=== PATIENT | female | born 1975 | race Caucasian/White ===

== ENCOUNTER → 2016-08-26 | Outpatient (CLI) | payer BC ==
[~2016-08-26] MED LIST: METF750T PO; MISC1TAB; PRENTAB26 PO; WLLXL300 PO
== END | disposition home or self-care (01) ==
LOC: C.PAPS 13:38
PROVIDERS: ATTEND Obstetrics & Gynecology
DX: Z01.419 Encounter for gynecological examination (general) (routine) without abnormal findings (principal)

== ENCOUNTER 2017-01-22 15:26 | Emergency (ER) | payer BC ==
[~2017-01-22] VITALS: Ht 170.2 cm; Wt 73.2 kg
[~2017-01-22 15:26] MED LIST changes: -METF750T PO; -WLLXL300 PO
[2017-01-22 15:45] VITALS: Ht 170.2 cm; Wt 73.2 kg
[2017-01-22] MEDS ORDERED: WLLXL300 PO (16:02)
[2017-01-22] MEDS ORDERED: METF750T PO (16:02)
--- NOTE | 2017-01-22 16:29 | EMERGENCY ROOM VISIT NOTE ---
History First contact with patient: 16:09 Chief Complaint: CARDIAC ASSESSMENT Stated Complaint: CHEST PAINS, PAIN IN SHOULDER, FULLNESS IN THROAT Nursing Triage Summary: triage note pt states sharp pain on the left side of chest and into left shoulder starting this am at 0900 pt states sharp pain is only when she deep breaths, at rest chest feels "dense and heavy" pt reports sob upon excertion denies recent travel admits to un dx anxiety History of Present Illness The patient is a 41 year old female who presents to the Emergency Room with complaints of chest pain. The patient states that around 9 AM she was driving her daughter to school and noticed a pain in the left side of her chest. She states it radiated into the left shoulder blade. She states the pain was worse with exertion and deep inspiration. She states that at rest she feels a heaviness in her chest. The patient rates her discomfort a 3/10. She states that overall throughout the day it has improved slightly. The patient states she has occasionally felt her heart pounding and palpitations. She denies any earache, sore throat, cough or fever. She denies any abdominal pain, nausea or vomiting. She denies any personal or family history of DVT or PE. She states that her mother has had CVA in her father has had angioplasty. She states that her sister from cardiac arrest but there is question that it was related to anorexia. The patient has a history of PCOS and takes Glucophage for that. She denies any recent travel or recent surgery. Review of Systems A 10 system review of systems was completed with positives and pertinent negatives listed in the HPI. Past Medical/Surgical History Medical Problems: (1) PCOS (polycystic ovarian syndrome) Social History Smoking Status: Never Smoker Housing Status: lives with family Current/Historical Medications Scheduled Bupropion HCl (Bupropion HCl Xl), 300 MG PO DAILY Metformin Hcl (Glucophage Er), 750 MG PO BID Allergies Coded Allergies: No Known Allergies (Unverified , 10/27/14) Physical Exam Vital Signs Date Time Temp Pulse Resp B/P (MAP) Pulse Ox O2 Delivery O2 Flow Rate FiO2 01/22/17 18:56 36.6 74 14 112/77 98 01/22/17 18:27 74 14 112/77 98 Room Air 01/22/17 17:53 70 14 110/76 98 Room Air 01/22/17 17:26 70 17 98 01/22/17 16:56 70 14 98 01/22/17 16:26 77 24 98 01/22/17 16:16 80 01/22/17 15:49 96 Room Air 01/22/17 15:45 36.6 106 18 115/68 96 Room Air Physical Exam VITALS: Vitals are noted on the nurse's note and reviewed by myself. Vital signs stable. The patient is afebrile. She is slightly tachycardic with heart rate 106 bpm. She is not hypoxic. GENERAL: This is a 41-year-old female, in no acute distress, nondiaphoretic, well-developed well-nourished. SKIN: The skin was without rashes, erythema, edema, or bruising. There is no tenting of the skin. Capillary reflex less than 2 seconds. HEAD: Normocephalic atraumatic. EARS: External ears normal in appearance. EYES: Pupils equal round and reactive to light and accommodation. Conjunctivae without injection, sclerae without icterus. Extraocular movements intact. NOSE: Patent, turbinates without inflammation or discharge. MOUTH: Mucous membranes moist. Tonsils are not enlarged. Pharynx without erythema or exudate. Uvula midline. Airway patent. Tongue does not deviate. NECK: Supple without nuchal rigidity. No lymphadenopathy. No thyromegaly. Cervical spine is nontender. No JVD. HEART: Regular rate and rhythm without murmurs gallops or rubs. LUNGS: Clear to auscultation bilaterally without wheezes, rales or rhonchi. No retractions or accessory muscle use. ABDOMEN: Positive bowel sounds x 4. Soft, nontender, without masses or organomegaly. Shah sign negative. MUSCULOSKELETAL: No muscle atrophy, erythema, or edema noted. Full range of motion in all extremities. Strength 5/5 throughout. NEURO: Patient was alert and oriented to person place and time. No focal neurological deficits. Medical Decision & Procedures Laboratory Results 01/22/17 16:45 Red Blood Count 4.67, Mean Corpuscular Volume 86.5, Mean Corpuscular Hemoglobin 30.0, Mean Corpuscular Hemoglobin Concent 34.7, Mean Platelet Volume 10.6, Neutrophils (%) (Auto) 73.2, Lymphocytes (%) (Auto) 18.4, Monocytes (%) (Auto) 5.9, Eosinophils (%) (Auto) 2.0, Basophils (%) (Auto) 0.5, Neutrophils # (Auto) 6.98, Lymphocytes # (Auto) 1.75, Monocytes # (Auto) 0.56, Eosinophils # (Auto) 0.19, Basophils # (Auto) 0.05 01/22/17 16:45 Test 01/22/17 16:45 White Blood Count 9.53 K/uL (4.8-10.8) Red Blood Count 4.67 M/uL (4.2-5.4) Hemoglobin 14.0 g/dL (12.0-16.0) Hematocrit 40.4 % (37-47) Mean Corpuscular Volume 86.5 fL (80-100) Mean Corpuscular Hemoglobin 30.0 pg (25-34) Mean Corpuscular Hemoglobin Concent 34.7 g/dl (32-36) Platelet Count 286 K/uL (130-400) Mean Platelet Volume 10.6 fL (7.4-10.4) Neutrophils (%) (Auto) 73.2 % Lymphocytes (%) (Auto) 18.4 % Monocytes (%) (Auto) 5.9 % Eosinophils (%) (Auto) 2.0 % Basophils (%) (Auto) 0.5 % Neutrophils # (Auto) 6.98 K/uL (1.4-6.5) Lymphocytes # (Auto) 1.75 K/uL (1.2-3.4) Monocytes # (Auto) 0.56 K/uL (0.11-0.59) Eosinophils # (Auto) 0.19 K/uL (0-0.5) Basophils # (Auto) 0.05 K/uL (0-0.2) RDW Standard Deviation 41.0 fL (36.4-46.3) RDW Coefficient of Variation 12.9 % (11.5-14.5) Immature Granulocyte % (Auto) 0.0 % Immature Granulocyte # (Auto) 0.00 K/uL (0.00-0.02) Prothrombin Time 11.1 SECONDS (9.0-12.0) Prothromb Time International Ratio 1.0 (0.9-1.1) Activated Partial Thromboplast Time 26.6 SECONDS (21.0-31.0) Partial Thromboplastin Ratio 1.0 D-Dimer < 190 ug/L FEU (0-500) Anion Gap 6.0 mmol/L (3-11) Est Creatinine Clear Calc Drug Dose 75.1 ml/min Estimated GFR () 86.1 Estimated GFR (Non- 74.3 BUN/Creatinine Ratio 10.5 (10-20) Calcium Level 8.6 mg/dl (8.5-10.1) Magnesium Level 2.2 mg/dl (1.8-2.4) Total Bilirubin 0.5 mg/dl (0.2-1) Aspartate Amino Transf (AST/SGOT) 11 U/L (15-37) Alanine Aminotransferase (ALT/SGPT) 15 U/L (12-78) Alkaline Phosphatase 56 U/L (45-117) Troponin I < 0.015 ng/ml (0-0.045) Total Protein 7.5 gm/dl (6.4-8.2) Albumin 4.0 gm/dl (3.4-5.0) Globulin 3.5 gm/dl (2.5-4.0) Albumin/Globulin Ratio 1.1 (0.9-2) Lipase 200 U/L (73-393) Thyroid Stimulating Hormone (TSH) 1.650 uIu/ml (0.300-4.500) Procedure The patient was monitored on a crossbow maker. They maintained a normal sinus rhythm without ectopy. ECG Indication: chest pain Rate (beats per minute): 70 Rhythm: normal sinus Findings: no acute ischemic change Comparison ECG Date: no prior available ED Course The patient was seen and examined. Previous visits were reviewed. The patient does not have a fever or leukocytosis. She does not have any significant electrolyte abnormalities. Troponin is not elevated. TSH is within normal limits. Lipase is not elevated. INR is 1.0. D-dimer is not elevated. Chest x-ray does not reveal any acute abnormality EKG does not reveal any arrhythmia or ischemia The patient presents to the emergency department with left-sided chest pain that is primarily pleuritic in nature. The patient's symptoms have nearly resolved at the time of discharge. The patient is encouraged to contact her family doctor to schedule a follow-up appointment for further evaluation and management, possible outpatient Holter monitor or stress test. She should return with any worsening symptoms. The case was discussed with Dr. Venegas who agrees with the assessment and treatment plan. Medication Reconciliation: I attest that I have personally reviewed the patient' s current medication list. Blood pressure screening: The patient was found to have normal blood pressure on screening and does not require follow-up Medical Decision DIFFERENTIAL DIAGNOSIS: Aortic dissection, myocarditis, pericarditis, cervical disc disease, costochondritis, herpes zoster, rib fracture, pleuritis, pneumonia , pulmonary embolus, tension pneumothorax, anxiety disorder, somatoform disorder , choledocholithiasis, status, esophagitis, esophageal spasm, esophageal reflux , esophageal rupture, pancreatitis, peptic ulcer disease, cardiac ischemia, ST elevation [place], acute coronary syndrome, arrhythmia, coronary artery vasospasm. vavular heart disease, coronary artery disease, among others. Impression Primary Impression: Substernal precordial chest pain Additional Impression: Pleuritic chest pain Departure Information Dispostion Home / Self-Care Condition GOOD Referrals RV. Garcia MD (PCP) Patient Instructions Chest Pain - [facility], [facility] Additional Instructions Contact your family doctor on Wednesday to schedule a follow up appointment for further evaluation and management and possible outpatient workup including possible stress test and holter monitor Return with any worsening symptoms Problem Qualifiers
--- NOTE | 2017-01-22 16:32 | DIAGNOSTIC IMAGING REPORT ---
SINGLE VIEW CHEST CLINICAL HISTORY: Atypical chest pain. FINDINGS: An AP, portable, upright chest radiograph is obtained. No prior studies are available for comparison at the time of dictation. The examination is degraded by portable technique and patient rotation. The cardiomediastinal silhouette is unremarkable. The lungs and pleural spaces are clear. No pneumothorax is seen. The bony thorax is grossly intact. IMPRESSION: No active disease in the chest. Electronically signed by: Chau Campuzano M.D. 01/22/2017 4:31 PM Dictated Date/Time: 01/22/2017 4:30 PM
[2017-01-22 16:58] LABS: BASO % 0.5 %; BASO ABS # 0.05 K/uL (0-0.2); COMPLETE YES; HEMATOCRIT 40.4 % (37-47); LYMPH % 18.4 %; LYMPH ABS # 1.75 K/uL (1.2-3.4); MEAN CELL VOLUME 86.5 fL (80-100); MEAN CORPUSCULAR HGB CONC 34.7 g/dl (32-36); MEAN PLATELET VOLUME 10.6 fL (7.4-10.4); MONO % 5.9 %; NEUT % 73.2 %; PLATELET COUNT 286 K/uL (130-400); RED BLOOD COUNT 4.67 M/uL (4.2-5.4); WHITE BLOOD COUNT 9.53 K/uL (4.8-10.8)
[2017-01-22 17:19] LABS: PROTHROMBIN TIME (PATIENT) 11.1 SECONDS (9.0-12.0)
[2017-01-22 17:26] LABS: ALT/SGPT 15 U/L (12-78); AST/SGOT 11 U/L (15-37); BLOOD UREA NITROGEN 10 mg/dl (7-18); BUN/CREATININE RATIO 10.5 (10-20); CALCIUM 8.6 mg/dl (8.5-10.1); CARBON DIOXIDE 30 mmol/L (21-32); CHLORIDE 106 mmol/L (98-107); CREATININE 0.94 mg/dl (0.60-1.20); GLUCOSE 82 mg/dl (70-99); MAGNESIUM 2.2 mg/dl (1.8-2.4); SODIUM 142 mmol/L (136-145)
[2017-01-22 17:37] LABS: ALB/GLOB RATIO 1.1 (0.9-2); ALKALINE PHOSPHATASE 56 U/L (45-117)
[2017-01-22 18:56] VITALS: BP 112/77; PULSE 74; TEMP 36.6; O2SAT 98
== END 2017-01-22 18:56 | disposition home or self-care (01) ==
LOC: C.EDB 15:28 → C.EDC 18:56
DX: R07.2 Precordial pain (principal); R07.1 Chest pain on breathing; R00.2 Palpitations; E28.2 Polycystic ovarian syndrome; Z82.3 Family history of stroke; Z79.84 Long term (current) use of oral hypoglycemic drugs

== ENCOUNTER → 2017-02-17 | Outpatient (CLI) | payer BC ==
[~2017-02-17] MED LIST changes: +METF750T PO; -MISC1TAB; -PRENTAB26 PO; +WLLXL300 PO
--- NOTE | 2017-02-17 16:08 | MAMMOGRAPHY REPORT ---
BILATERAL DIGITAL SCREENING MAMMOGRAM TOMOSYNTHESIS WITH CAD: 02/17/2017 CLINICAL HISTORY: Routine screening. Patient has no complaints. TECHNIQUE: Breast tomosynthesis in addition to standard 2D mammography was performed. Current study was also evaluated with a Computer Aided Detection (CAD) system. COMPARISON: No prior exams were available for comparison. BREAST COMPOSITION: There are scattered areas of fibroglandular density in both breasts. FINDINGS: There are punctate benign-appearing microcalcifications scattered in the breasts. No suspi cious mass, architectural distortion or cluster of microcalcifications is seen. IMPRESSION: ACR BI-RADS CATEGORY 1: NEGATIVE There is no mammographic evidence of malignancy. A 1 year screening mammogram is recommended. The pa tient will receive written notification of the results. Approximately 10% of breast cancers are not detected with mammography. A negative mammographic report should not delay biopsy if a clinically suggestive mass is present. Melissa Saavedra M.D. ay/:02/17/2017 14:16:30 Dough Catcher: Nichole ASCENCIO(Onelia)(Leydi)(OCTAVIA), [facility] letter sent: Normal 1/2 BI-RADS Code: ACR BI-RADS Category 1: Negative
== END | disposition home or self-care (01) ==
LOC: C.MAMM 13:43
PROVIDERS: ATTEND Internal Medicine
DX: Z12.31 Encounter for screening mammogram for malignant neoplasm of breast (principal)